=== PATIENT | male | born 1955 | race Two or more races ===

== ENCOUNTER 2022-04-09 06:27 | Inpatient (IN) | payer BC, MEDICARE ==
[~2022-04-09] VITALS: Ht 167.6 cm; Wt 93.0 kg
[2022-04-09] VITALS (12 sets, daily range): BP systolic 97–134; BP diastolic 63–81
[~2022-04-09 06:27] MED LIST: AMIO200T33 PO; APIX5TAB PO; ATOR20TA50 PO; CARV12.544 PO; CROM4SOL6 EACHEYE; DILT-14 PO; FURO40TA4 PO; LOSA25TA38 PO; POTA-180 PO; SACU1TAB PO
[2022-04-09] MEDS ORDERED: VANCOMYCIN 1GM/250ML 250 ML IV ONE ×3 (07:45→22:00)
[2022-04-09] MEDS ORDERED: MIDAZOLAM HCL 2MG/2ML 2ml VIAL (1mg/ml) ONE (08:17)
[2022-04-09] MEDS ORDERED: LIDOCAINE 2%HCL (LOCAL ANESTH.) INJ 10ml MDV ONE (08:17)
[2022-04-09] MEDS ORDERED: fentaNYL CITRATE 100 MCG/2 ML VL ONE (08:17)
[2022-04-09] MEDS ORDERED: IODIXANOL 320MG/ML 100ML BTL IV ONE (08:18)
[2022-04-09] MEDS ORDERED: ceFAZolin 1GM VL ONE ×3 (08:33→08:38)
[2022-04-09] MEDS ORDERED: VANCOMYCIN HCL 1000 MG VL ONE (08:35)
[2022-04-09] MEDS ORDERED: ATROPINE SULF 1 MG/10ml SYR ONE (08:52)
[2022-04-09] MEDS ORDERED: NITROGLYCERIN 0.4 MG SL TAB SL PRN (10:15)
[2022-04-09] MEDS ORDERED: MORPHINE SULFATE INJ 2 MG/ml SYRG IV PRN (10:15)
[2022-04-09] MEDS ORDERED: HYDROcodone-ACET 5/325MG TAB PO PRN (10:30)
[2022-04-09] MEDS: DOXYCYCLINE 100 MG TAB/CAP PO SCH (21:07)
[2022-04-09] MEDS: VANCOMYCIN 1GM/250ML 250 ML IV SCH (21:08)
[2022-04-10 05:00] VITALS: BP 139/75
[2022-04-10 08:00] VITALS: BP 130/69
[2022-04-10 09:00] VITALS: BP 131/81
[2022-04-10] MEDS: DOXYCYCLINE 100 MG TAB/CAP PO SCH (09:09)
[2022-04-10] MEDS: VANCOMYCIN 1GM/250ML 250 ML IV SCH (09:09)
[2022-04-10] MEDS ORDERED: VANCOMYCIN 1GM/250ML 250 ML IV ONE (10:30)
[2022-04-10 11:31] LABS: Basophils # (auto) 0 10 ^3/uL (0-0.2); Basophils % (auto) 0.3 % (0.0-2.0); Eosinophils # (auto) 0 10 ^3/uL (0-0.8); Eosinophils % (auto) 0.6 % (0.0-7.0); Hematocrit 42.2 % (41.0-53.0); Hemoglobin 13.6 g/dL (13.5-17.5); Lymphocytes # (auto) 1.2 10 ^3/uL (0.4-5.4); Mean Corpuscular Hemoglobin 30.2 pg (28.0-32.0); Mean Corpuscular Hgb Conc. 32.4 g/dL (32.0-36.0); Mean Corpuscular Volume 93.4 fL (80.0-100.0); Monocytes # (auto) 0.6 10 ^3/uL (0-1.3); Neutrophils # (auto) 6.3 10 ^3/uL (1.6-8.6); Neutrophils % (auto) 77.1 % (37.0-80.0); Red Blood Cells 4.52 10^6/uL (4.5-5.90); Red Cell Distribution Width 14.6 % (11.8-14.3); White Blood Cell 8.1 10^3/uL (4.4-10.8)
[2022-04-10 11:50] LABS: Albumin 3.1 g/dL (3.4-5.0); Calcium 8.9 mg/dL (8.5-10.1); Potassium 4.3 mmol/L (3.5-5.1)
[2022-04-10 11:52] LABS: BUN/Creatinine Ratio 16.9
[2022-04-10 12:07] LABS: Bilirubin, Total 0.7 mg/dL (0.2-1.0); Total Protein 6.3 g/dL (6.4-8.2)
[2022-04-10 12:15] VITALS: BP 131/81
[2022-04-10 13:00] VITALS: BP 130/81
== END 2022-04-10 13:22 | disposition home or self-care (01) | DRG 227 ==
LOC: CATH 06:27 → TELE 10:15 → TELE-EAST 15:30
PROVIDERS: ADMIT Specialist; ATTEND Specialist
PROC: 0JH609Z Insertion of Cardiac Resynchronization Defibrillator Pulse Generator into Chest Subcutaneous Tissue and Fascia, Open Approach (ICD-10-PCS; principal; 2022-04-09)
PROC: 02HK3KZ Insertion of Defibrillator Lead into Right Ventricle, Percutaneous Approach (ICD-10-PCS; 2022-04-09)
PROC: 02HL3KZ Insertion of Defibrillator Lead into Left Ventricle, Percutaneous Approach (ICD-10-PCS; 2022-04-09)
PROC: 02H63KZ Insertion of Defibrillator Lead into Right Atrium, Percutaneous Approach (ICD-10-PCS; 2022-04-09)
DX: I25.5 Ischemic cardiomyopathy (principal); I50.22 Chronic systolic (congestive) heart failure; I25.10 Atherosclerotic heart disease of native coronary artery without angina pectoris; I11.0 Hypertensive heart disease with heart failure; Z20.822 Contact with and (suspected) exposure to COVID-19; I48.0 Paroxysmal atrial fibrillation; E78.5 Hyperlipidemia, unspecified; Z95.1 Presence of aortocoronary bypass graft
CPT/HCPCS: 36415; 71045; 80053; 85025; 93005; 99152; 99153; C1882; G0378; J0690; J2001; J2250; Q9967

== ENCOUNTER 2024-10-28 07:16 | Day surgery (SDC) | payer BC, MEDICARE ==
[2024-10-28] VITALS (7 sets, daily range): BP systolic 104–125; BP diastolic 44–57; PULSE 65; RESP 11–16; TEMP 97.2; O2SAT 97–99
[~2024-10-28] VITALS: Ht 167.6 cm; Wt 81.6 kg
[~2024-10-28 07:16] MED LIST changes: +LOSA-533 PO; -LOSA25TA38 PO
[2024-10-28] MEDS: IODIXANOL 320MG/ML 100ML BTL IV ONE ×2 (08:04→10:05)
[2024-10-28] MEDS: SODIUM CHL 0.9% 0 ML ONE (10:12)
[2024-10-28] MEDS: LIDOCAINE 2%HCL (LOCAL ANESTH.) INJ 20ML MDV ONE (10:12)
[2024-10-28] MEDS: ANGIOMAX 250 MG VIAL IV ONE (10:12)
[2024-10-28] MEDS: VERAPAMIL 2.5MG/ML INJ 2ML VIAL IV ONE (10:12)
[2024-10-28] MEDS: HEPARIN SODIUM (PORCINE) 5000 UNITS/ML 1ML VIAL ONE (10:12)
[2024-10-28] MEDS: fentaNYL CITRATE 100 MCG/2 ML VL ONE (10:40)
[2024-10-28] MEDS: MIDAZOLAM HCL 2MG/2ML 2ml VIAL (1mg/ml) ONE (10:40)
--- NOTE | 2024-10-28 13:01 | DVHOP2 ---
Operative Report - 2 Report Details Date: 10/28/24 Preop Diagnosis: Cardiomyopathy Postop Diagnosis: s/p right and left heart catheterization. Cardiomyopathy Surgeon: Iliana Loredo MD Anesthesiologist: Conscious sedation Anesthesia: Mac, Local Consent: The patient was informed of the risks and benefits of the procedure. These in clude but are not limited to complications of anesthesia, postoperative infection, incomplete relief of symptoms, recurrence of symptoms, damage to blood vessels, nerves and tendons, deep venous thrombosis, pulmonary embolism and possible need for repeat surgery in the future. Complications: No complications Findings: Cardiomyopathy Indications for Surgery: Shortness of breath, cardiomyopathy, cardiac clearance Name of Procedure Performed Right and left heart catheterization. Bilateral cine coronary angiography. Left ventriculography. Procedure Details Procedure Details: Prior local anesthesia with 2% lidocaine to the right wrist into the right antecubital area, a six Indian sheath was placed into the antecubital vein through a pre-existing 20 gauge Angiocath. We also placed a six Indian sheath into the radial artery. Through the antecubital vein we placed a [place] catheter into the right atrium right ventricle pulmonary artery and capillary wedge pressure positions where pressures were obtained and recorded. Cardiac outputs were determined by the thermodilution technique in triplicate. Through the arterial sheath we placed a [place] catheter and obtained pressures in the left ventricle after placing a Gonzalo catheter. Pressures were obtained simultaneously in the aorta and left ventricle. Angiography was then obtained with a JR4 and a J.R. three five for left and right coronaries respectively. Hemodynamics right atrial pressure was seven with a right ventricular pressure of 47/7, a pulmonary artery pressure of 4over 18 with a mean of 30 a capillary wedge pressure of 1aortic blood pressure was 129/58 with a mean of 8. Left everardo tricular pressure was 120/13, cardiac output by the thermodilution technique was 3.43 L/min with an index of 1.79. 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 Sluggish flow. PDA and posterolateral branches are normal. Left main is large and normal. Left anterior descending coronary artery is moderately aneurysmal and dilated. It is otherwise free of significant disease. No critical lesions noted in the diagonals were LAD. The circumflex is large with marginals that are free of significant disease however moderately ectatic. Ventriculography in the TSE projection shows an EF of approximately 30%. Global hypokinesis with LV enlargement noted. Impression: Elevated left ventricular end-diastolic pressure at rest with decreased left ventricular ejection fraction. Ectatic vessels. Sluggish flow. No significant coronary artery disease. Recommendations: Medical therapy is warranted continue risk factor modification. Condition Good Disposition Home Date of Service: Oct 28, 2024 Billing Provider: ILIANA LOREDO Sr., MD Cardiology Common Codes: 40580-AWXFABE INP/OBS CARE (High) Cardiology Procedure Codes: 19718-H HEART CATH JANNY 02SAT, 47877-CGVU HEART CATH W/INTRA INJ ILIANA LOREDO Sr., MD Oct 28, 2024 13:00
== END 2024-10-28 14:15 | disposition home or self-care (01) ==
LOC: CATH 07:16
PROVIDERS: ATTEND Internal Medicine
DX: R06.02 Shortness of breath (principal); I25.5 Ischemic cardiomyopathy; J44.9 Chronic obstructive pulmonary disease, unspecified; E78.5 Hyperlipidemia, unspecified; I13.0 Hypertensive heart and chronic kidney disease with heart failure and stage 1 through stage 4 chronic kidney disease, or unspecified chronic kidney disease; E11.22 Type 2 diabetes mellitus with diabetic chronic kidney disease; N18.30 Chronic kidney disease, stage 3 unspecified; I50.22 Chronic systolic (congestive) heart failure; I48.91 Unspecified atrial fibrillation; Z79.899 Other long term (current) drug therapy; Z95.0 Presence of cardiac pacemaker; Z79.82 Long term (current) use of aspirin; Z90.49 Acquired absence of other specified parts of digestive tract
CPT/HCPCS: 93460; C1769; C1894; J1644; J2250; J3010; J7030; Q9967; 99152; 99153